=== PATIENT | male | born 1945 | race Caucasian/White ===

== ENCOUNTER 2017-05-14 11:01 | Emergency (ER) | payer BC ==
[~2017-05-14] VITALS: Ht 175.3 cm; Wt 85.0 kg
[2017-05-14 11:05] VITALS: BP 137/71; PULSE 64; RESP 18; TEMP 98.9; O2SAT 100
[2017-05-14] MEDS ORDERED: BENI5TAB4 PO (11:07)
[2017-05-14] MEDS ORDERED: CELE50CA PO (11:16)
--- NOTE | 2017-05-14 11:39 | RADRPT ---
EXAM DATE/TIME: 05/14/2017 11:21 [facility] COMPARISON: No previous studies available for comparison. INDICATIONS : Left hip dislocation. MEDICAL HISTORY : None. SURGICAL HISTORY : Left total hip. ENCOUNTER: Initial ACUITY: 1 day PAIN SCORE: 10/10 LOCATION: Left hip FINDINGS: AP view of the pelvis with 2 views of the left hip demonstrate dislocation of the femoral head compon ent out of the acetabular cup. There is superior and anterior dislocation. There are no findings to i ndicate hardware loosening. 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 No soft tissue abnor mality is seen. There is degenerative disc disease at L4-L5. CONCLUSION: Dislocation of the left femoral head component out of the acetabular cup. Amador Gunderson MD on May 14, 2017 at 11:36 Board Certified Radiologist. This report was verified electronically.
--- NOTE | 2017-05-14 11:43 | PD ---
HPI Chief Complaint: Hip Injury Time Seen by Provider: 11:10 Travel History International Travel<30 days: No Contact w/Intl Traveler<30days: No Traveled to known affect area: No History of Present Illness HPI Patient 71-year-old male history of total hip Left replacement in [place] and has had one subsequent dislocation presents emergency department for evaluation of dislocated left hip. Patient states he was leaning over to pick something up off the ground when his hip suddenly dislocated. He denies any significant pain. Denies any other injuries. States symptoms started just prior to arrival. States his discomfort is only mild. PFSH Past Medical History Hypertension: Yes Social History Alcohol Use: Yes (3 glasses wine/ daily) Tobacco Use: No Substance Use: No Allergies-Medications (Allergen,Severity, Reaction): Coded Allergies: No Known Allergies (Unverified , 05/14/17) Reported Meds & Prescriptions Reported Meds & Active Scripts Active Reported Celebrex (Celecoxib) 50 Mg Cap 50 Mg PO BID Benicar (Olmesartan) 5 Mg Tab 10 Mg PO DAILY Review of Systems Except as stated in HPI: all other systems reviewed are Neg Physical Exam Narrative GENERAL: Well-developed well-nourished, pleasant, no obvious distress per SKIN: Focused skin assessment warm/dry. HEAD: Atraumatic. Normocephalic. EYES: Pupils equal and round. No scleral icterus. No injection or drainage. ENT: No nasal bleeding or discharge. Mucous membranes pink and moist. NECK: Trachea midline. No JVD. CARDIOVASCULAR: Regular rate and rhythm. No murmur appreciated. RESPIRATORY: No accessory muscle use. Clear to auscultation. Breath sounds equal bilaterally. GASTROINTESTINAL: Abdomen soft, non-tender, nondistended. Hepatic and splenic margins not palpable. MUSCULOSKELETAL: There is obvious shortening of his left hip consistent with a superior hip dislocation, pulse motor and sensory intact distally in all 4 extremities, compartments are soft. No other bony abnormalities seen on his person. No midline CT or L-spine tenderness NEUROLOGICAL: Awake and alert. No obvious cranial nerve deficits. Motor grossly within normal limits. Normal speech. PSYCHIATRIC: Appropriate mood and affect; insight and judgment normal. Data Data Last Documented VS Vital Signs Date Time Temp Pulse Resp B/P (MAP) Pulse Ox O2 Delivery O2 Flow Rate FiO2 05/14/17 12:27 62 18 160/78 (105) 100 05/14/17 12:00 3.00 05/14/17 11:13 Room Air 05/14/17 11:05 98.9 Orders Orders Hip, Uni(Ap&Lat) W Ap Pelvis (05/14/17 ) Etomidate Inj (Amidate Inj) (05/14/17 11:45) Hip, Ap Only Wo Ap Pelvis (05/14/17 ) Ed Discharge Order (05/14/17 12:13) MDM Medical Decision Making Medical Screen Exam Complete: Yes Emergency Medical Condition: Yes Differential Diagnosis Hip dislocation, hip fracture, pelvic fracture unlikely. Narrative Course Patient room to the emergency department, sedated and reduced, ambulatory. No other concerns at warrant further workup. He is stable for discharge to Procedures Procedure Narrative After the risks and benefits were discussed the following procedure was performed: MODERATE SEDATION: The patient was placed on a dice manager and pulse oximetry. An ambu bag and suction was immediately available at bedside. The patient was monitored by the nurse. Oxygen saturation , heart rate and blood pressure were monitored. Procedural sedation was acheived using 6 mg of time and. The patient was observed until awake and alert. Procedural Sedation time in attendance was 5 minutes. ORTHOPEDIC REDUCTION: Wilmer from the orthopedic department is assisting me, with standard traction countertraction and minimal internal rotation patient had successful reduction of his left hip reduction, pulse motor and sensory were confirmed both before and after the procedure, he is able to or after procedure. Diagnosis Primary Impression: Hip dislocation, left Disposition: 01 DISCHARGE HOME Condition: Stable Gregor Lucas MD May 14, 2017 11:43
[2017-05-14] MEDS ORDERED: ETOMIDATE 20 MG/10 ML VIAL IV PUSH ONE (11:45)
[2017-05-14 12:00] VITALS: O2SAT 100
--- NOTE | 2017-05-14 12:23 | RADRPT ---
EXAM DATE/TIME: 05/14/2017 12:05 [facility] COMPARISON: HIP LEFT (AP&LAT 2/3VWS) W AP PELVIS, May 14, 2017, 11:21. INDICATIONS : Post reduction, left hip. MEDICAL HISTORY : None. SURGICAL HISTORY : None. ENCOUNTER: Initial ACUITY: 1 day PAIN SCORE: 2/10 LOCATION: Left hip FINDINGS: A dislocated left hip prosthesis has successfully been reduced. The femoral component is now well-sea quirino within the acetabulum. Bony structures are intact. CONCLUSION: Jewish of normal alignment following reduction of a dislocated left hip prosthesis. No acute bony abnormality. Brian Boothe MD on May 14, 2017 at 12:19 Board Certified Radiologist. This report was verified electronically.
[2017-05-14 12:27] VITALS: BP 160/78
== END 2017-05-14 12:42 | disposition home or self-care (01) ==
LOC: NEPC 11:01
DX: S73.005A Unspecified dislocation of left hip, initial encounter (principal); I10 Essential (primary) hypertension; X50.1XXA Overexertion from prolonged static or awkward postures, initial encounter
CPT/HCPCS: 27265; 73501; 73502; 99152